=== PATIENT | female | born 1945 | race American Indian/Alaskan Native ===

== ENCOUNTER 2016-10-30 11:17 | Emergency (ER) | payer MEDICARE ==
[2016-10-30] MEDS ORDERED: ASPIRIN ONE (11:56)
[2016-10-30] MEDS ORDERED: ASPIRIN PO ONE (11:57)
--- NOTE | 2016-10-30 12:03 | Emergency Department Report ---
Entered by UDAY HENRIQUEZ, acting as scribe for EDA EDMONDSON NP. Chief Complaint: Extremity Injury, Upper Stated Complaint: LT ARM TINGLING - HPI History of Present Illness: 71 y/o female, nontoxic, NAD, well developed, PMHx of asthma and HTN, c/o tingling sensation of the left arm, shoulder and wrist beginning 1 week ago. Denies fever, CP, SOB, NARANJO, dizziness, NVD, blurry vision and trauma - Exam Vital Signs: Vital Signs 10/30/16 11:24 Temperature 98.2 F Pulse Rate 87 Respiratory 18 Rate Blood Pressure 146/54 O2 Sat by Pulse 99 Oximetry Physical Exam: GENERAL: The patient is a well-developed, well-nourished male in no apparent distress. Patient is alert and oriented x3. EXTREMITIES: Without any cyanosis, clubbing, rash, lesions or edema. Peripheral pulses intact. Capillary refill less than 2 seconds. HEART: Regular rate and rhythm without murmur, rubs or gallops. No reproducible MSE screening note: Focused history and physical exam performed. Due to findings the following was ordered: Troponin, CBC, CMP, Pro BNP, EKG, Cardiac CK/CKMB, PTT, PT, 325 mg aspirin, UA Dr. Soliz has been notified about patient. Charge nurse been notified to have the patient go to the main ED as soon as possible. ED Disposition for MSE Condition: Stable This documentation as recorded by the scribe,UDAY HENRIQUEZ,accurately reflects the service I personally performed and the decisions made by ,EDA EDMONDSON, CHERRY.
[2016-10-30 12:09] LABS: Basophils % (Auto) 0.4 % (0.0-1.8); Eosinophils % (Auto) 1.3 % (0.0-4.3); Hematocrit 42.1 % (30.3-42.9); Hemoglobin 14.3 gm/dl (10.1-14.3); Mean Corpuscular HGB Conc 34 % (30-34); Mean Corpuscular Hemoglobin 29 pg (28-32); Mean Corpuscular Volume 87 fl (79-97); Platelet Count 260 K/mm3 (140-440); Red Blood Count 4.86 M/mm3 (3.65-5.03); Red Cell Distribution Width 14.8 % (13.2-15.2); White Blood Count 6.3 K/mm3 (4.5-11.0)
[2016-10-30 12:21] LABS: INR 0.96 (0.87-1.13)
[2016-10-30 12:22] LABS: Partial Thromboplastin Time 28.1 Sec. (24.2-36.6)
[2016-10-30 12:34] LABS: Creatine Kinase MB 1.8 ng/mL (0.0-4.0)
[2016-10-30 12:35] LABS: Alanine Aminotransferase 21 units/L (7-56); Albumin/Globulin Ratio 1.1 %; Alkaline Phosphatase 48 units/L (35-129); Anion Gap 18 mmol/L; BUN/Creatinine Ratio 12.85; Blood Urea Nitrogen 9 mg/dL (7-17); Calcium 9.3 mg/dL (8.4-10.2); Carbon Dioxide 24 mmol/L (22-30); Chloride 100.4 mmol/L (98-107); Creatine Kinase 266 units/L (30-135); Glucose 77 mg/dL (65-100); Potassium 3.5 mmol/L (3.6-5.0); Sodium 139 mmol/L (137-145); Total Protein 7.7 g/dL (6.3-8.2)
--- NOTE | 2016-10-30 13:17 | XRay Report ---
ROUTINE CHEST, TWO VIEWS: HISTORY: Left chest pain. The trachea, heart, mediastinal contour, lung zaragoza and bony thorax are unremarkable. IMPRESSION: Unremarkable chest x-ray.
[2016-10-30] MEDS ORDERED: TORADOL IM ONE (17:44)
[2016-10-30] MEDS ORDERED: TYLENOL PO ONE (17:52)
--- NOTE | 2016-10-30 18:00 | Emergency Department Report ---
HPI - General Chief Complaint: Extremity Injury, Upper Time Seen by Provider: 10/30/16 17:42 - HPI HPI: The patient is a 71-year-old female who presents for evaluation of left shoulder pain, neck pain, and arm pain. The patient reports pain to the left lower neck, upper back, shoulder, for the past one week, 7/10 in severity, aching in quality, radiating into the left proximal arm, and is exacerbated with movement. The patient states that she awoke with the symptoms. She denies blunt trauma or injury to the neck, shoulder, or back. She denies pain with flexion or extension of the neck, paresthesias or motor deficit in the left arm or hand, chest pain, dyspnea, hemoptysis, strokelike symptoms, or other neuro deficit. ED Past Medical Hx - Past Medical History Hx Hypertension: Yes Hx Diabetes: Yes (boarderline) Hx Arthritis: Yes - Surgical History Past Surgical History?: No - Social History Smoking Status: Never Smoker Substance Use Type: None - Medications Home Medications: Home Medications Medication Instructions Recorded Confirmed Last Taken Type HYDROcodone/APAP 5-325 [Hawley 1 each PO Q6HR PRN #15 tablet 10/30/16 Unknown Rx 5/325] Ondansetron [Zofran Odt] 4 mg PO Q8HR #15 tab.rapdis 10/30/16 Unknown Rx ED Review of Systems ROS: Stated complaint: LT ARM TINGLING Other details as noted in HPI Constitutional: denies: fever ENT: denies: throat pain Respiratory: denies: cough, shortness of breath Cardiovascular: denies: chest pain Endocrine: denies unexplained weight loss or gain Gastrointestinal: denies: abdominal pain, nausea Genitourinary: denies: dysuria Musculoskeletal: Reports neck pain, shoulder pain, Skin: denies: rash Neurological: denies: headache Hematological/Lymphatic: denies: easy bleeding or easy bruising Psych: denies sadness or hopelessness Physical Exam - Physical Exam Vital Signs: Vital Signs 10/30/16 11:24 Temperature 98.2 F Pulse Rate 87 Respiratory 18 Rate Blood Pressure 146/54 O2 Sat by Pulse 99 Oximetry Physical Exam: General: well-nourished, well-developed, no acute distress Head: Normocephalic, atraumatic Eyes: normal sclera ENT: Mucous membranes are pink and moist Neck: trachea midline, neck supple, No neck stiffness, no midline cervical spinous tenderness to palpation present, no spinous step-off or obvious deformity Respiratory: Breath sounds equal bilaterally, no wheezing, rales, or rhonchi Cardio: S1 and S2 present, no murmurs, rubs, gallops, capillary refill is brisk Abdomen: Normoactive bowel sounds, soft abdomen, no rigidity, no guarding or rebound tenderness Musc: Inspection of the neck unremarkable, no redness, warmth, fluctuance, crepitus, swelling, tenderness to palpation presents to the left lower cervical paraspinal musculature, the left caudal medial trapezius, and left supraspinous , no left glenohumeral tenderness, full passive and active range of motion to the left short intact, shoulder impingement, distal sensation, motor pressure, and pulses in the left arm and hand intact, including wrist extensor tendon function intact. Skin: No rash Neuro: no facial drooping, normal speech Psych: Normal affect ED Course Vital Signs 10/30/16 11:24 Temperature 98.2 F Pulse Rate 87 Respiratory 18 Rate Blood Pressure 146/54 O2 Sat by Pulse 99 Oximetry ED Medical Decision Making - Lab Data Result diagrams: 10/30/16 11:57 10/30/16 11:57 - Medical Decision Making The patient was seen and examined by myself. The patient is placed on a logging specialist and continuous pulse ox. On initial evaluation, the patient was found to be in no distress. Exam findings are negative for cervical radiculopathy as patient has no paresthesia or motor deficit in the left arm or hand, and CT scan or MRI of the cervical spine is not indicated at this time. The patient given a tablet of Tylenol for her pain. EKG was negative for findings suggestive of acute cardiac infarct. Labs and imaging are obtained. Chest x-ray is negative for pneumothorax, focal consolidation, pulmonary vascular congestion, pleural effusion, or other obvious acute cardiopulmonary disease process. Lab results were non-concerning including levels of troponin, WBC, hemoglobin, hematocrit, electrolytes, renal function. The patient was reevaluated and reported that their symptoms were markedly improved. As the patient has a ARTHUR risk score less than 2, and a well's score less than 2, the patient is at low risk of ACS or pulmonary emboli etiology of their symptoms. The patient is stable for discharge with outpatient follow-up. The patient is given follow-up and return instructions. The patient expressed understanding and agreed with the plan. The patient is discharged in stable condition. Critical care attestation.: If time is entered above; I have spent that time in minutes in the direct care of this critically ill patient, excluding procedure time. ED Disposition Clinical Impression: Neck pain on left side, Acute pain of left shoulder, Acute upper back pain Disposition: DISCHARGED TO HOME OR SELFCARE Is pt being admited?: No Does the pt Need Aspirin: No Condition: Stable Instructions: Musculoskeletal Pain (ED), Peripheral Neuropathy (ED), Back Pain (ED) Additional Instructions: Do not take more than the prescribed dose of norco/pain medicine, or combine or take the pain medicine prescribed to you today with other pain medicine, sleeping medicine or other sedatives, or with alcohol, as doing so may cause central nervous system sedation and respiratory depression, and potentially cause you to stop breathing and . Additionally, do not drive a vehicle, operate heavy machinery, or engage in any activity that would cause harm to yourself or others after taking the pain medicine prescribed to you. Prescriptions: HYDROcodone/APAP 5-325 [Hawley 5/325] 1 each PO Q6HR PRN #15 tablet PRN Reason: Pain Ondansetron [Zofran Odt] 4 mg PO Q8HR #15 tab.rapdis Referrals: SHARON PA MD [Primary Care Provider] - 3-5 Days Time of Disposition: 17:52
[2016-10-30 18:34] VITALS: BP 135/90
== END 2016-10-30 18:37 | disposition home or self-care (01) ==
LOC: ED 11:17
DX: M54.2 Cervicalgia (principal); M25.512 Pain in left shoulder; M54.6 Pain in thoracic spine; I10 Essential (primary) hypertension; M19.90 Unspecified osteoarthritis, unspecified site
CPT/HCPCS: 36415; 71020; 80053; 82550; 82553; 83880; 84484; 85025; 85610; 85730; 93005; 93010; 99284; J1885

== ENCOUNTER 2018-09-28 17:52 | Emergency (ER) | payer MEDICARE, OTHER ==
--- NOTE | 2018-09-28 18:07 | Emergency Department Report ---
ED Recheck HPI - General Stated Complaint: MED REFILL Time Seen by Provider: 09/28/18 18:03 - History of Present Illness Initial Comments: This is a 73-year-old female nontoxic well in appearance with no signs of distress presents to the ED for albtuerol refill medication. Patient denies any wheezing. Denies any symptoms and stated just needs medication refill. Denies any fever, chills, headache, nausea, vomiting, chest pain or SOB. Denies any other complaints. Denies any allergies. MD Complaint: medication refill request Symptoms Since Prior Visit: no new symptoms Associated Symptoms: none. denies: fever, chills, chest pain, shortness of breath, rash, malaise, nasuea, abdominal pain - Related Data Previous Rx's Medication Instructions Recorded Last Taken Type HYDROcodone/APAP 5-325 [Corry 1 each PO Q6HR PRN #15 tablet 10/30/16 Unknown Rx 5/325] Ondansetron [Zofran Odt] 4 mg PO Q8HR #15 tab.rapdis 10/30/16 Unknown Rx ALBUTEROL Inhaler(NF) [VENTOLIN 2 puff IH Q4-6H PRN #1 inha 09/28/18 Unknown Rx Inhaler(NF)] Allergies Allergy/AdvReac Type Severity Reaction Status Date / Time No Known Allergies Allergy Verified 09/28/18 18:00 ED Review of Systems ROS: Stated complaint: MED REFILL Other details as noted in HPI Constitutional: denies: chills, fever Eyes: denies: eye pain, eye discharge, vision change ENT: denies: ear pain, throat pain Respiratory: denies: cough, shortness of breath, wheezing Cardiovascular: denies: chest pain, palpitations Endocrine: no symptoms reported Gastrointestinal: denies: abdominal pain, nausea, diarrhea Genitourinary: denies: urgency, dysuria, discharge Musculoskeletal: denies: back pain, joint swelling, arthralgia Skin: denies: rash, lesions Neurological: denies: headache, weakness, paresthesias Psychiatric: denies: anxiety, depression Hematological/Lymphatic: denies: easy bleeding, easy bruising ED Past Medical Hx - Past Medical History Hx Hypertension: Yes Hx Diabetes: Yes (boarderline) Hx Arthritis: Yes - Social History Smoking Status: Never Smoker Substance Use Type: None - Medications Home Medications: Home Medications Medication Instructions Recorded Confirmed Last Taken Type HYDROcodone/APAP 5-325 [Corry 1 each PO Q6HR PRN #15 tablet 10/30/16 Unknown Rx 5/325] Ondansetron [Zofran Odt] 4 mg PO Q8HR #15 tab.rapdis 10/30/16 Unknown Rx ALBUTEROL Inhaler(NF) [VENTOLIN 2 puff IH Q4-6H PRN #1 inha 09/28/18 Unknown Rx Inhaler(NF)] ED Physical Exam - General General appearance: alert, in no apparent distress - Head Head exam: Present: atraumatic, normocephalic - Neck Neck exam: Present: normal inspection, full ROM - Respiratory Respiratory exam: Present: normal lung sounds bilaterally. Absent: respiratory distress, wheezes, rales, rhonchi, stridor, chest wall tenderness, accessory muscle use, decreased breath sounds, prolonged expiratory - Cardiovascular Cardiovascular Exam: Present: regular rate, normal rhythm - Extremities Exam Extremities exam: Present: normal inspection, full ROM - Back Exam Back exam: Present: normal inspection, full ROM - Neurological Exam Neurological exam: Present: alert, oriented X3 - Psychiatric Psychiatric exam: Present: normal affect, normal mood - Skin Skin exam: Present: warm, dry, intact, normal color. Absent: rash ED Course - Reevaluation(s) Reevaluation #1: 09/28/18 18:07 Patient is speaking in full sentences with no signs of distress noted. ED Recheck MDM - Medical Decision Making Patient was instructed to Follow-up with a primary care doctor in 3-5 days or if symptoms worsen and continue return to emergency room as soon as possible. At time of discharge, the patient does not seem toxic or ill in appearance. No acute signs of distress noted. Patient agrees to discharge treatment plan of care. No further questions noted by the patient. Critical care attestation.: If time is entered above; I have spent that time in minutes in the direct care of this critically ill patient, excluding procedure time. ED Disposition Clinical Impression: Medication refill Disposition: DC-01 TO HOME OR SELFCARE Is pt being admited?: No Does the pt Need Aspirin: No Condition: Stable Instructions: Albuterol (By breathing) Additional Instructions: Follow-up with a primary care doctor in 3-5 days or if symptoms worsen and continue return to emergency room as soon as possible. Prescriptions: ALBUTEROL Inhaler(NF) [VENTOLIN Inhaler(NF)] 2 puff IH Q4-6H PRN #1 inha PRN Reason: Wheezing Referrals: PRIMARY CARE, [Referring] - 3-5 Days BILL ELMORE MD [Staff Physician] - 3-5 Days [facility] [Outside] - 3-5 Days [facility] [Outside] - 3-5 Days
[2018-09-28 18:09] VITALS: BP 143/84
== END 2018-09-28 18:14 | disposition home or self-care (01) ==
LOC: ED 17:52
DX: J45.909 Unspecified asthma, uncomplicated (principal); I10 Essential (primary) hypertension; E11.9 Type 2 diabetes mellitus without complications; M19.90 Unspecified osteoarthritis, unspecified site; Z76.0 Encounter for issue of repeat prescription